=== PATIENT | female | born 1995 | race Caucasian/White ===

== ENCOUNTER 2017-06-20 00:21 | Emergency (ER) | payer OTHER ==
[2017-06-20] MEDS: IBUPROFEN 600 MG TAB PO (01:46)
[2017-06-20] MEDS: ACETAMINOPHEN 325 MG TAB PO (01:46)
== END 2017-06-20 02:42 | disposition home or self-care (01) ==
LOC: FTE 00:21
DX: J20.9 Acute bronchitis, unspecified (principal)
CPT/HCPCS: 99283; Z7502

== ENCOUNTER 2017-07-01 13:07 | Emergency (ER) | payer OTHER | END 2017-07-01 14:20 | disposition home or self-care (01) | LOC: E/R 14:20 | DX: R21 Rash and other nonspecific skin eruption (principal) | CPT/HCPCS: 99283; Z7502 ==

== ENCOUNTER 2017-10-18 02:41 | Emergency (ER) | payer OTHER ==
[2017-10-18 07:06] LABS: ADD MAN DIFF? NO
[2017-10-18 07:08] LABS: WHITE BLOOD COUNT 6.8 10^3/ul (4.8-10.8)
[2017-10-18 07:08] LABS: BASOPHILS % 0.3 % (0.0-2.0); EOSINOPHILS # 0.2 10^3/ul (0.0-0.5); EOSINOPHILS % 2.2 % (0.0-7.0); HEMATOCRIT 39.4 % (37.0-47.0); HEMOGLOBIN 12.8 g/dl (12.0-16.0); LYMPHOCYTES # 1.4 10^3/ul (0.8-2.9); LYMPHOCYTES % 19.9 % (15.0-51.0); MEAN CORPUSCULAR HEMOGLOBIN 26.3 pg (29.0-33.0); MEAN CORPUSCULAR HGB CONC 32.5 g/dl (32.0-37.0); MEAN CORPUSCULAR VOLUME 81.1 fl (82.0-101.0); MEAN PLATELET VOLUME 10.2 fl (7.4-10.4); MONOCYTE # 0.4 10^3/ul (0.3-0.9); MONOCYTES % 6.4 % (0.0-11.0); NEUTROPHIL # 4.8 10^3/ul (1.6-7.5); NEUTROPHILS % 70.9 % (39.0-77.0); PLATELET COUNT 249 10^3/UL (140-415); RED BLOOD COUNT 4.86 10^6/ul (4.20-5.40)
[2017-10-18 07:23] LABS: ADD UMIC NO; UR ASCORBIC ACID NEGATIVE (NEGATIVE); UR BILIRUBIN (Dip) NEGATIVE (NEGATIVE); UR BLOOD (Dip) NEGATIVE (NEGATIVE); UR CLARITY CLEAR (CLEAR); UR COLOR YELLOW (YELLOW); UR GLUCOSE (Dip) NEGATIVE (NEGATIVE); UR KETONES (Dip) NEGATIVE (NEGATIVE); UR LEUKOCYTE ESTERASE (Dip) NEGATIVE Leu/ul (NEGATIVE); UR NITRITE (Dip) NEGATIVE (NEGATIVE); UR SPECIFIC GRAVITY (Dip) 1.024 (1.003-1.030); UR TOTAL PROTEIN (Dip) NEGATIVE (NEGATIVE); UR UROBILINOGEN (Dip) NEGATIVE (NEGATIVE)
[2017-10-18 07:25] LABS: ALANINE AMINOTRANSFERASE 122 IU/L (13-69); ALBUMIN 4.6 g/dl (3.3-4.9); ALBUMIN/GLOBULIN RATIO 1.21; ALKALINE PHOSPHATASE 83 IU/L (42-121); ANION GAP 18 (8-16); ASPARTATE AMINO TRANSFERASE 85 IU/L (15-46); BILIRUBIN,INDIRECT 0.7 mg/dl (0-1.1); BILIRUBIN,TOTAL 0.7 mg/dl (0.2-1.3); BLOOD UREA NITROGEN 9 mg/dl (7-20); CALCIUM 9.4 mg/dl (8.4-10.2); CARBON DIOXIDE 28 mmol/L (21-31); CHLORIDE 102 mmol/L (97-110); CREATININE 0.58 mg/dl (0.44-1.00); GLUCOSE 103 mg/dl (70-220); LIPASE 42 U/L (23-300); POTASSIUM 3.9 mmol/L (3.5-5.1); SODIUM 144 mmol/L (135-144); TOTAL PROTEIN 8.4 g/dl (6.1-8.1)
[2017-10-18 07:43] LABS: TROPONIN-I < 0.012 ng/ml (0.00-0.12)
== END 2017-10-18 07:58 | disposition home or self-care (01) ==
LOC: FTE 02:41
DX: K80.20 Calculus of gallbladder without cholecystitis without obstruction (principal); F17.210 Nicotine dependence, cigarettes, uncomplicated
CPT/HCPCS: 36415; 71045; 76705; 80053; 81003; 82962; 83690; 84484; 84703; 85025; 93005; 99285-25

== ENCOUNTER 2017-12-30 12:22 | Observation (INO) | payer OTHER ==
[2017-12-30] MEDS: SOD CHLORIDE 0.9% 1,000 ML IV (06:00)
[~2017-12-30 12:22] MED LIST: CEFAZOLIN 2 GM/50 ML (PMX) 50 ML IVPB; LIDOCAINE 2% (SDV) 5 ML INJ
[2017-12-30] MEDS ORDERED: PROPOFOL 100 ML (14:54)
[2017-12-30] MEDS ORDERED: CEFAZOLIN 1 GM INJ (14:56)
[2017-12-30] MEDS ORDERED: ROCURONIUM 50 MG INJ (14:56)
[2017-12-30] MEDS ORDERED: ACETAMINOPHEN 1000MG/100ML IV 100 ML (14:56)
[2017-12-30] MEDS ORDERED: DEXAMETHASONE 4 MG/ML 1 ML INJ (15:23)
[2017-12-30] MEDS ORDERED: ONDANSETRON 4 MG INJ (15:24)
[2017-12-30] MEDS: BUPIVACAINE 0.25% (MPF) 30 ML INJ (15:25)
[2017-12-30] MEDS ORDERED: SUGAMMADEX SODIUM 200 MG/2 ML VIAL IV (15:37)
[2017-12-30] MEDS ORDERED: HYDROmorphONE 1 MG/5 ML IV SYRINGE IV ×3 (15:58→16:00)
[2017-12-30] MEDS ORDERED: DIPHENHYDRAMINE 50 MG INJ (15:59)
[2017-12-30] MEDS ORDERED: MEPERIDINE 25 MG INJ IV (16:00)
[2017-12-30] MEDS ORDERED: FENTAnyl 50 MCG/ML VIAL IV ×2 (16:00)
[2017-12-30] MEDS ORDERED: hydrALAzine 20 MG INJ IV (16:00)
[2017-12-30] MEDS ORDERED: EPHEDrine SULFATE 50 MG/5 ML SYG IV (16:00)
[2017-12-30] MEDS ORDERED: METOCLOPRAMIDE 10 MG INJ IV (16:00)
[2017-12-30] MEDS ORDERED: ALBUTEROL 0.083% (NEB) 2.5 MG/3 ML AMP HHN (16:00)
[2017-12-30] MEDS ORDERED: ONDANSETRON 4 MG INJ IV (16:00)
[2017-12-30] MEDS ORDERED: LABETALOL HCL 20MG INJ IV (16:00)
[2017-12-30] MEDS: HYDROmorphONE 1 MG/5 ML IV SYRINGE IV (16:07)
[2017-12-30] MEDS: FENTAnyl 50 MCG/ML VIAL IV (16:07)
[2017-12-30] MEDS: DIPHENHYDRAMINE 50 MG INJ IV (16:07)
[2017-12-30] MEDS: KETOROLAC 30 MG INJ IV (16:14)
[2017-12-30] MEDS: MIDAZOLAM 1 MG/ML 2 ML INJ IV (16:25)
[2017-12-30] MEDS: IBUPROFEN 800 MG TAB PO (18:05)
[2017-12-30] MEDS ORDERED: morphine 2 MG INJ (19:23)
[2017-12-30] MEDS: morphine 2 MG INJ IV ×2 (19:44→21:09)
[2017-12-31] MEDS: morphine 4 MG/ML VIAL IV (00:32)
== END 2017-12-31 11:45 | disposition home or self-care (01) ==
LOC: SDS 12:22 → REC 17:01 → MS1 20:25
DX: K80.10 Calculus of gallbladder with chronic cholecystitis without obstruction (principal); E66.01 Morbid (severe) obesity due to excess calories; Z68.39 Body mass index [BMI] 39.0-39.9, adult; Z88.8 Allergy status to other drugs, medicaments and biological substances
CPT/HCPCS: 47562; 84703; 88304; 99217

== ENCOUNTER 2018-01-05 16:21 | Emergency (ER) | payer OTHER ==
[2018-01-05] MEDS: KETOROLAC 30 MG INJ IM (18:18)
== END 2018-01-05 19:23 | disposition home or self-care (01) ==
LOC: FTE 16:21
DX: T81.31XA Disruption of external operation (surgical) wound, not elsewhere classified, initial encounter (principal); Y73.8 Miscellaneous gastroenterology and urology devices associated with adverse incidents, not elsewhere classified; Z90.49 Acquired absence of other specified parts of digestive tract
CPT/HCPCS: 12020; 81025; 96372; 99284-25